=== PATIENT | female | born 2000 | race Caucasian/White ===

== ENCOUNTER → 2020-05-08 11:52 | Observation (INO) | END | disposition home health service (06) | LOC: 1NENULAB | PROVIDERS: ADMIT Student in an Organized Health Care Education/Training Program; ATTEND Student in an Organized Health Care Education/Training Program ==

== ENCOUNTER 2020-05-09 12:23 | Inpatient (IN) ==
[2020-05-09] MEDS ORDERED: EPHEDrine 50 MG/ML VIAL IVP PRN (12:26)
[2020-05-09] MEDS ORDERED: Epidural Premix (fent/bupiv) 110 ML EP SCH (12:30)
[2020-05-09] MEDS ORDERED: Naloxone 0.4 MG/ML INJ IVP PRN (12:31)
[2020-05-09] MEDS ORDERED: Famotidine 20 MG/2 ML VIAL IVP PRN (12:31)
[2020-05-09] MEDS ORDERED: *HR* FentaNYL (PF) 100 MCG/2 ML VIAL IVP PRN (12:31)
[2020-05-09] MEDS ORDERED: Ringers Solution, Lactated 1,000 ML ONE (12:31)
[2020-05-09] MEDS ORDERED: Metoclopramide 10 MG/2 ML VIAL IVP PRN (12:31)
[2020-05-09] MEDS ORDERED: Lidocaine 1% 20 ML MDV INFILT PRN (12:31)
[2020-05-09] MEDS ORDERED: Ringers Solution, Lactated 1,000 ML IVC SCH (12:45)
[2020-05-09 12:52] LABS: Basophils # 0.1 K/mcL (0.0-0.2); Basophils % 0.3 %; Eosinophils # 0.1 K/mcL (0.0-0.6); Eosinophils % 0.9 %; Hematocrit 40.4 % (35.3-44.9); Hemoglobin 13.6 g/dL (11.5-15.4); Immature Granulocytes % 0.7 % (0-4); Lymphocytes # 2.3 K/mcL (0.6-4.6); Lymphocytes % 14.9 %; Mean Corpuscular HGB Conc 33.7 g/dL (31.6-35.5); Mean Corpuscular Volume 86.1 fL (83.0-100.0); Mean Platelet Volume 9.9 fL (9.4-12.4); Monocytes # 1.2 K/mcL (0.0-1.3); Monocytes % 7.8 %; Neutrophils # 11.4 K/mcL (1.6-8.9); Platelet Count 242 K/mcL (140-400); Red Blood Count 4.69 M/mcL (3.82-4.97); Red Cell Distribution Width 12.1 % (11.5-14.5); Segmented Neutrophils % 75.4 %; White Blood Count 15.1 K/mcL (4.3-11.1)
[2020-05-09] MEDS ORDERED: Ondansetron 4 MG/2 ML VIAL ONE (12:55)
[2020-05-09] MEDS ORDERED: Ondansetron 4 MG/2 ML VIAL IVP PRN (12:56)
[2020-05-09] MEDS ORDERED: Ropivacaine/PF 0.2% 20 ML VIAL ONE (13:53)
[2020-05-09] MEDS ORDERED: *HR* FentaNYL (PF) 100 MCG/2 ML VIAL ONE (13:53)
[2020-05-09 14:35] LABS: Amphetamine Screen,Urine Negative ng/mL (Cutoff=1000); Barbiturate Screen,Urine Negative ng/mL (Cutoff=200); Benzodiazepines Screen,Urine Negative ng/mL (Cutoff=200); Cannabinoid Screen,Urine Positive ng/mL (Cutoff = 50); Cocaine Screen,Urine Negative ng/mL (Cutoff= 300); Opiate Screen,Urine Negative ng/mL (Cutoff=300); Phencyclidine Screen,Urine Negative ng/mL (Cutoff=25)
[2020-05-09] MEDS ORDERED: Lidocaine/EPI 1:200k 2% PF 20 ML VIAL ONE (15:46)
[2020-05-09] MEDS ORDERED: Oxytocin 20 units/ LR 1000 mL 20 UNIT/1,000 ML BAG IVC ONE (19:45)
[2020-05-09] MEDS ORDERED: Lanolin 7 G OINT...G. TP PRN (20:19)
[2020-05-09] MEDS ORDERED: Benzocaine/Menthol 56 GM AEROSOL SPRAY TP PRN (20:19)
[2020-05-09] MEDS ORDERED: Acetaminophen 325 MG TABLET PO PRN (20:19)
[2020-05-09] MEDS ORDERED: Oxytocin 20 units/ LR 1000 mL 20 UNIT/1,000 ML BAG IVC SCH (20:19)
[2020-05-09] MEDS: Nicotine 14 MG PATCH.TD24 TD SCH (20:48)
[2020-05-10] MEDS: *HR* HYDROcodone/Acet 5/325 mg TABLET PO PRN ×3 (00:34→14:57)
[2020-05-10 07:12] LABS: Basophils # 0.1 K/mcL (0.0-0.2); Basophils % 0.4 %; Eosinophils # 0.2 K/mcL (0.0-0.6); Eosinophils % 1.4 %; Hematocrit 35.4 % (35.3-44.9); Immature Granulocytes % 0.6 % (0-4); Lymphocytes # 2.5 K/mcL (0.6-4.6); Lymphocytes % 19.4 %; Mean Corpuscular HGB Conc 32.5 g/dL (31.6-35.5); Mean Corpuscular Hemoglobin 29.2 pg (28.0-33.3); Mean Corpuscular Volume 89.8 fL (83.0-100.0); Mean Platelet Volume 10.3 fL (9.4-12.4); Monocytes # 1.2 K/mcL (0.0-1.3); Monocytes % 9.4 %; Neutrophils # 8.7 K/mcL (1.6-8.9); Platelet Count 200 K/mcL (140-400); Red Blood Count 3.94 M/mcL (3.82-4.97); Red Cell Distribution Width 12.1 % (11.5-14.5); Segmented Neutrophils % 68.8 %; White Blood Count 12.7 K/mcL (4.3-11.1)
[2020-05-10 07:13] LABS: Hemoglobin 11.5 g/dL (11.5-15.4)
[2020-05-10] MEDS: Nicotine 14 MG PATCH.TD24 TD SCH (07:41)
[2020-05-10] MEDS ORDERED: Prenatal Vit/FA 1 EACH TABLET PO SCH (09:00)
[2020-05-10 09:31] VITALS: BP 114/80
== END 2020-05-10 17:08 | disposition home or self-care (01) | DRG 560 ==
LOC: 1NENULAB 12:23 → 1NENUOBS 20:18
PROVIDERS: ADMIT Obstetrics & Gynecology; ATTEND Obstetrics & Gynecology